=== PATIENT | female | born 1950 | race Caucasian/White ===

== ENCOUNTER 2017-04-19 08:19 | Emergency (ER) | payer BC, MEDICAID ==
[~2017-04-19] VITALS: Ht 162.6 cm; Wt 75.0 kg
[2017-04-19] MEDS ORDERED: ACETAMINOPHEN 325MG TABLET PO ONE (09:30)
[2017-04-19 11:18] VITALS: BP 131/79
== END 2017-04-19 11:29 | disposition home or self-care (01) ==
LOC: ER 08:42
DX: M25.562 Pain in left knee (principal); M25.462 Effusion, left knee; M76.42 Tibial collateral bursitis [Pellegrini-Stieda], left leg
CPT/HCPCS: 29505; 73562; 99284

== ENCOUNTER 2019-08-25 19:31 | Inpatient (IN) | payer BC, MEDICAID, MEDICARE, OTHER ==
[~2019-08-25] VITALS: Ht 170.2 cm; Wt 83.5 kg
[~2019-08-25 19:31] MED LIST: ALPR-395 PO; ASPI-1393 PO; GLUC-230 PO; MAGN250T29 PO; MULT-1195 PO; [UNRECOGNIZED DRUG - OTHER]; [UNRECOGNIZED DRUG - OTHER]
[2019-08-25 20:07] LABS: HEMATOCRIT. 45.9 % (36.0-48.0); HEMOGLOBIN. 15.2 g/dL (12.0-16.0); MEAN CORPUSCULAR HEMOGLOBIN 30.2 pg (28.0-32.0); MEAN CORPUSCULAR VOLUME 91.4 fL (81.0-99.0); RED BLOOD CELL COUNT 5.02 mill/uL (4.2-5.4); RED CELL DISTRIBUTION WIDTH 14.4 % (11.6-14.6)
[2019-08-25 20:08] LABS: BASOPHILS % 0.5 % (0.0-2.0); EOSINOPHILS % 1.7 % (0.0-5.0); LYMPHOCYTES % 15.9 % (20.0-50.0); MEAN PLATELET VOLUME 9.3 fl (7.4-10.4); MONOCYTES % 7.8 % (2.0-8.0); NEUTROPHILS % 74.1 % (40.0-76.0); PLATELET 183 x1000/uL (130-400)
[2019-08-25 20:15] LABS: CHLORIDE 107 mEq/L (98-107)
[2019-08-25 20:19] LABS: ETHANOL BLOOD < 10 mg/dL
[2019-08-25 20:25] LABS: PROTHROMBIN TIME 10.5 sec (9.6-11.0)
[2019-08-25 23:33] LABS: CLARITY URINE TURBID (CLEAR); COLOR URINE DARK YELLOW (YELLOW); KETONES URINE TRACE (NEGATIVE); LEUKOCYTE ESTERASE URINE NEGATIVE (NEGATIVE); NITRITE URINE NEGATIVE (NEGATIVE); OCCULT BLOOD URINE NEGATIVE (NEGATIVE); PH URINE 5.5 (4.5-8.0); PROTEIN URINE 1+ (NEGATIVE); SPECIFIC GRAVITY URINE 1.026 (1.005-1.030)
[2019-08-25 23:56] LABS: *AMPHETAMINES SCREEN URINE NEGATIVE (NEGATIVE); *BARBITURATES SCREEN URINE NEGATIVE (NEGATIVE)
[2019-08-25 23:57] LABS: *BENZODIAZEPINES SCREEN URINE NEGATIVE (NEGATIVE); *COCAINE SCREEN URINE NEGATIVE (NEGATIVE); METHADONE URINE SCREEN NEGATIVE (NEGATIVE); OPIATES URINE SCREEN NEGATIVE (NEGATIVE); PHENCYCLIDINE URINE SCREEN NEGATIVE (NEGATIVE)
[2019-08-25 23:58] LABS: CANNABINOID URINE SCREEN NEGATIVE (NEGATIVE)
[2019-08-26 02:00] VITALS: BP 111/69
[2019-08-26 03:22] VITALS: BP 111/69
[2019-08-26] MEDS ORDERED: IOHEXOL-350 100 ML BOTTLE ONE (03:35)
[2019-08-26] MEDS ORDERED: IPRATROPIUM/ALBUTEROL 0.5-3(2.5)MG/3ML NEB HHN PRN (07:45)
[2019-08-26 08:00] VITALS: BP 120/73
[2019-08-26] MEDS: SODIUM CHLORIDE 0.9% 1,000 ML IV SCH (11:23)
[2019-08-26 12:00] VITALS: BP 115/64
[2019-08-26] MEDS: SODIUM CHLORIDE 0.9% INJ 3ML FLUSH IVF SCH ×2 (14:49→21:35)
[2019-08-26 16:00] VITALS: BP 132/62
[2019-08-26 20:00] VITALS: BP 117/69
[2019-08-26] MEDS: LEVETIRACETAM 500 MG in SODIUM CHLORIDE 0.9% 100 ML IV SCH (21:36)
[2019-08-27] VITALS: BP 129/65
[2019-08-27] MEDS: SODIUM CHLORIDE 0.9% 1,000 ML IV SCH ×2 (01:21→18:59)
[2019-08-27 04:00] VITALS: BP 135/72
[2019-08-27] MEDS: SODIUM CHLORIDE 0.9% INJ 3ML FLUSH IVF SCH ×3 (06:00→22:34)
[2019-08-27 07:55] LABS: BASOPHILS % 0.8 % (0.0-2.0); HEMATOCRIT. 39.5 % (36.0-48.0); HEMOGLOBIN. 12.9 g/dL (12.0-16.0); LYMPHOCYTES % 33.8 % (20.0-50.0); MEAN CORPUSCULAR VOLUME 91.6 fL (81.0-99.0); MEAN PLATELET VOLUME 10.3 fl (7.4-10.4); NEUTROPHILS % 54.4 % (40.0-76.0); PLATELET 167 x1000/uL (130-400); RED BLOOD CELL COUNT 4.31 mill/uL (4.2-5.4); RED CELL DISTRIBUTION WIDTH 14.6 % (11.6-14.6)
[2019-08-27 07:56] LABS: CHLORIDE 113 mEq/L (98-107)
[2019-08-27 08:00] VITALS: BP 136/73
[2019-08-27 08:04] LABS: LDL CHOLESTEROL 157 mg/dL (5-100)
[2019-08-27 08:05] LABS: HDL CHOLESTEROL 31 mg/dL (40-59)
[2019-08-27] MEDS: LEVETIRACETAM 500 MG in SODIUM CHLORIDE 0.9% 100 ML IV SCH ×2 (08:32→22:34)
[2019-08-27 13:00] VITALS: BP 121/88
[2019-08-27] MEDS ORDERED: DIPHENHYDRAMINE 25MG CAPSULE PO PRN (14:15)
[2019-08-27] MEDS ORDERED: ACETAMINOPHEN 325MG TABLET PO PRN (14:15)
[2019-08-27] MEDS ORDERED: HYDROCODONE/ACETAMINOPHEN 5/325MG TABLET PO PRN (14:15)
[2019-08-27] MEDS ORDERED: ACETAMINOPHEN 650MG SUPP PR PRN (14:15)
[2019-08-27 16:00] VITALS: BP 151/83
[2019-08-27] MEDS ORDERED: GADOBENATE DIMEGLUMINE 529 MG/ML 10ML IV ONE (16:36)
[2019-08-27] MEDS: CHOLESTYRAMINE/SUCROSE 4G POWDER PACKET PO SCH (17:15)
[2019-08-27 20:00] VITALS: BP 129/72
[2019-08-27] MEDS ORDERED: LACTULOSE 20G/30ML UDC PO PRN (21:00)
[2019-08-28] VITALS: BP 119/56
[2019-08-28 04:00] VITALS: BP 127/64
[2019-08-28] MEDS: CHOLESTYRAMINE/SUCROSE 4G POWDER PACKET PO SCH ×2 (07:15→17:15)
[2019-08-28 08:00] VITALS: BP 131/79
[2019-08-28] MEDS: LEVETIRACETAM 500 MG in SODIUM CHLORIDE 0.9% 100 ML IV SCH (09:00)
[2019-08-28 10:40] LABS: HEMATOCRIT 38.2 % (36.0-48.0); HEMOGLOBIN 12.6 g/dL (12.0-16.0); MEAN CORPUSCULAR HEMOGLOBIN 29.9 pg (28.0-32.0); MEAN CORPUSCULAR VOLUME 91.2 fL (81.0-99.0); PLATELET 169 x1000/uL (130-400); RED CELL DISTRIBUTION WIDTH 14.4 % (11.6-14.6)
[2019-08-28 10:43] LABS: CHLORIDE 112 mEq/L (98-107)
[2019-08-28 12:00] VITALS: BP 149/73
[2019-08-28 12:03] LABS: HEPATITIS B SURFACE ANTIGEN NEGATIVE
[2019-08-28 12:33] LABS: HEPATITIS A AB IGM NEGATIVE (NEGATIVE)
[2019-08-28 12:51] LABS: BG BASE EXCESS -0.7 mmol/L (-2.0-2.0); BG CARBOXYHEMOGLOBIN 0.4 % (0.5-1.5); BG DEOXYHEMOGLOBIN 4.9 % (0.0-5.0); BG FRACTION INSPIRED OXYGEN 21; BG HCO3 ACT 23.5 mmol/L (22.0-26.0); BG METHEMOGLOBIN 0.1 % (0.0-1.5); BG OXYGEN SATURATION 95.1 % (92.0-98.5); BG OXYHEMOGLOBIN 94.6 % (94.0-97.0); BG PCO2 37.2 mmHg (35.0-45.0); BG PH 7.418 (7.350-7.450); BG PO2 75.9 mmHg (75.0-100.0); BG SAMPLE SITE RIGHT BRACHIAL; BG TOTAL HEMOGLOBIN 13.2 g/dL (12.0-18.0); BG VENT MODE ROOM AIR
[2019-08-28] MEDS: SODIUM CHLORIDE 0.9% 1,000 ML IV SCH (13:52)
[2019-08-28] MEDS: SODIUM CHLORIDE 0.9% INJ 3ML FLUSH IVF SCH ×3 (13:52→21:09)
[2019-08-28] MEDS ORDERED: POTASSIUM CHLORIDE INJ 40 MEQ in DEXT 5% WATER 250 ML IV NR (14:00)
[2019-08-28 16:00] VITALS: BP 161/91
[2019-08-28] MEDS: FAMOTIDINE 20MG/2ML VIAL IV SCH (19:44)
[2019-08-28 20:00] VITALS: BP 165/94
[2019-08-28] MEDS: ENOXAPARIN 40MG/0.4ML SYR SUBCUT SCH (21:08)
[2019-08-28] MEDS: DEXT 5%/0.45% NACL KCL 20MEQ/L 1,000 ML IV SCH (21:08)
[2019-08-28] MEDS: CIPROFLOXACIN 0.3% OPHTH SOLN 2.5ML RIGHTEYE SCH (21:09)
[2019-08-28] MEDS: LEVETIRACETAM 500MG PREMIX 100 ML IV SCH (21:09)
[2019-08-29] VITALS: BP 169/91
[2019-08-29 04:00] VITALS: BP 195/80
[2019-08-29] MEDS: SODIUM CHLORIDE 0.9% INJ 3ML FLUSH IVF SCH ×3 (06:00→22:00)
[2019-08-29] MEDS: CHOLESTYRAMINE/SUCROSE 4G POWDER PACKET PO SCH ×2 (06:15→17:15)
[2019-08-29 07:11] LABS: HEMATOCRIT 42.2 % (36.0-48.0); HEMOGLOBIN 14.2 g/dL (12.0-16.0); MEAN CORPUSCULAR HEMOGLOBIN 30.4 pg (28.0-32.0); MEAN CORPUSCULAR VOLUME 90.4 fL (81.0-99.0); PLATELET 159 x1000/uL (130-400); RED BLOOD CELL COUNT 4.67 mill/uL (4.2-5.4); RED CELL DISTRIBUTION WIDTH 14.1 % (11.6-14.6)
[2019-08-29 07:12] LABS: CHLORIDE 112 mEq/L (98-107)
[2019-08-29 07:39] LABS: PROTHROMBIN TIME 10.4 sec (9.6-11.0)
[2019-08-29 08:00] VITALS: BP 145/76
[2019-08-29] MEDS: LEVETIRACETAM 500MG PREMIX 100 ML IV SCH ×2 (09:29→20:58)
[2019-08-29] MEDS: FAMOTIDINE 20MG/2ML VIAL IV SCH (09:29)
[2019-08-29] MEDS: CIPROFLOXACIN 0.3% OPHTH SOLN 2.5ML RIGHTEYE SCH ×4 (09:29→20:58)
[2019-08-29 12:00] VITALS: BP 121/69
[2019-08-29] MEDS: DEXT 5%/0.45% NACL KCL 20MEQ/L 1,000 ML IV SCH (13:20)
[2019-08-29 16:00] VITALS: BP 142/77
[2019-08-29 20:00] VITALS: BP 156/79
[2019-08-29] MEDS: ENOXAPARIN 40MG/0.4ML SYR SUBCUT SCH (20:58)
[2019-08-30] VITALS: BP_SYST 139; BP_SYST 156; BP_DIAS 58; BP_DIAS 79
[2019-08-30 04:00] VITALS: BP 171/70
[2019-08-30] MEDS: SODIUM CHLORIDE 0.9% INJ 3ML FLUSH IVF SCH ×3 (06:31→22:06)
[2019-08-30] MEDS: DEXT 5%/0.45% NACL KCL 20MEQ/L 1,000 ML IV SCH ×2 (06:31→22:06)
[2019-08-30] MEDS: CHOLESTYRAMINE/SUCROSE 4G POWDER PACKET PO SCH ×2 (06:33→17:15)
[2019-08-30] MEDS: CIPROFLOXACIN 0.3% OPHTH SOLN 2.5ML RIGHTEYE SCH ×4 (09:53→22:04)
[2019-08-30] MEDS: LEVETIRACETAM 500MG PREMIX 100 ML IV SCH ×2 (09:54→22:06)
[2019-08-30] MEDS: FAMOTIDINE 20MG/2ML VIAL IV SCH (09:54)
[2019-08-30 20:00] VITALS: BP 151/82
[2019-08-30] MEDS: ENOXAPARIN 40MG/0.4ML SYR SUBCUT SCH (22:05)
[2019-08-31] VITALS: BP 132/77
[2019-08-31] MEDS: MORPHINE SULFATE 2 MG/ML CPJ (NOT FOR IM USE) IV PRN ×3 (00:20→15:06)
[2019-08-31 04:00] VITALS: BP 121/71
[2019-08-31] MEDS: SODIUM CHLORIDE 0.9% INJ 3ML FLUSH IVF SCH ×3 (05:51→22:00)
[2019-08-31] MEDS: CHOLESTYRAMINE/SUCROSE 4G POWDER PACKET PO SCH ×2 (05:52→16:48)
[2019-08-31 08:00] VITALS: BP 147/83
[2019-08-31] MEDS: FAMOTIDINE 20MG/2ML VIAL IV SCH (08:22)
[2019-08-31] MEDS: CIPROFLOXACIN 0.3% OPHTH SOLN 2.5ML RIGHTEYE SCH ×5 (08:23→20:16)
[2019-08-31] MEDS: LEVETIRACETAM 500MG PREMIX 100 ML IV SCH ×3 (08:23→20:35)
[2019-08-31 12:00] VITALS: BP 157/70
[2019-08-31] MEDS: DEXT 5%/0.45% NACL KCL 20MEQ/L 1,000 ML IV SCH (15:07)
[2019-08-31 16:00] VITALS: BP 125/69
[2019-08-31 20:00] VITALS: BP 133/67
[2019-08-31] MEDS: ENOXAPARIN 40MG/0.4ML SYR SUBCUT SCH (20:16)
[2019-09-01] VITALS: BP 131/47
[2019-09-01 04:00] VITALS: BP 106/82
[2019-09-01] MEDS: SODIUM CHLORIDE 0.9% INJ 3ML FLUSH IVF SCH ×3 (05:07→21:21)
[2019-09-01] MEDS: CHOLESTYRAMINE/SUCROSE 4G POWDER PACKET PO SCH ×2 (06:22→17:15)
[2019-09-01 08:00] VITALS: BP 155/74
[2019-09-01] MEDS: LEVETIRACETAM 500MG PREMIX 100 ML IV SCH ×2 (10:00→20:03)
[2019-09-01] MEDS: CIPROFLOXACIN 0.3% OPHTH SOLN 2.5ML RIGHTEYE SCH ×4 (10:00→20:03)
[2019-09-01] MEDS: DEXT 5%/0.45% NACL KCL 20MEQ/L 1,000 ML IV SCH (10:07)
[2019-09-01] MEDS: FAMOTIDINE 20MG/2ML VIAL IV SCH (10:51)
[2019-09-01 12:03] VITALS: BP 147/72
[2019-09-01 16:03] VITALS: BP 150/74
[2019-09-01 20:00] VITALS: BP 140/60
[2019-09-01] MEDS: ENOXAPARIN 40MG/0.4ML SYR SUBCUT SCH (20:03)
[2019-09-02] VITALS: BP 159/94
[2019-09-02] MEDS: DEXT 5%/0.45% NACL KCL 20MEQ/L 1,000 ML IV SCH ×2 (00:05→17:07)
[2019-09-02 04:00] VITALS: BP 133/79
[2019-09-02] MEDS: SODIUM CHLORIDE 0.9% INJ 3ML FLUSH IVF SCH ×3 (05:33→21:34)
[2019-09-02] MEDS: CHOLESTYRAMINE/SUCROSE 4G POWDER PACKET PO SCH ×2 (06:26→17:07)
[2019-09-02 08:00] VITALS: BP_SYST 151; BP_SYST 157; BP_DIAS 84; BP_DIAS 97
[2019-09-02] MEDS: CIPROFLOXACIN 0.3% OPHTH SOLN 2.5ML RIGHTEYE SCH ×4 (08:25→21:41)
[2019-09-02] MEDS: FAMOTIDINE 20MG/2ML VIAL IV SCH (08:25)
[2019-09-02] MEDS: LEVETIRACETAM 500MG PREMIX 100 ML IV SCH ×2 (09:36→21:00)
[2019-09-02 12:00] VITALS: BP 152/89
[2019-09-02 16:00] VITALS: BP 150/94
[2019-09-02] MEDS: ENOXAPARIN 40MG/0.4ML SYR SUBCUT SCH (21:42)
[2019-09-02 21:44] VITALS: BP 144/82
[2019-09-03] VITALS (7 sets, daily range): BP systolic 111–153; BP diastolic 66–86
[2019-09-03] MEDS: SODIUM CHLORIDE 0.9% INJ 3ML FLUSH IVF SCH ×2 (06:00→14:00)
[2019-09-03] MEDS: CHOLESTYRAMINE/SUCROSE 4G POWDER PACKET PO SCH ×2 (07:15→17:15)
[2019-09-03] MEDS: LEVETIRACETAM 500MG PREMIX 100 ML IV SCH (08:26)
[2019-09-03] MEDS: FAMOTIDINE 20MG/2ML VIAL IV SCH (08:26)
[2019-09-03] MEDS: CIPROFLOXACIN 0.3% OPHTH SOLN 2.5ML RIGHTEYE SCH ×3 (08:54→17:00)
[2019-09-03] MEDS: DEXT 5%/0.45% NACL KCL 20MEQ/L 1,000 ML IV SCH (08:54)
[2019-09-03] MEDS ORDERED: LEVETIRACETAM 500 MG in SODIUM CHLORIDE 0.9% 100 ML IV SCH (10:00)
== END 2019-09-03 21:52 | disposition home or self-care (01) | DRG 74 ==
LOC: ER 20:42 → 6EST 23:42 → EDBEDREQ 23:55 → EDBEDREQTM 23:55 → EDBEDREQSVC 23:55 → ENRESERV 08-26 00:20 → 5WST 08-26 18:40
PROVIDERS: ADMIT Internal Medicine; ATTEND Internal Medicine
DX: G90.8 Other disorders of autonomic nervous system (principal); E87.2 Acidosis; G93.40 Encephalopathy, unspecified; D32.0 Benign neoplasm of cerebral meninges; I65.21 Occlusion and stenosis of right carotid artery; G93.89 Other specified disorders of brain; I25.10 Atherosclerotic heart disease of native coronary artery without angina pectoris; E78.5 Hyperlipidemia, unspecified; E87.6 Hypokalemia; I10 Essential (primary) hypertension; R13.10 Dysphagia, unspecified; E66.9 Obesity, unspecified; K21.9 Gastro-esophageal reflux disease without esophagitis; E11.9 Type 2 diabetes mellitus without complications; K76.0 Fatty (change of) liver, not elsewhere classified; Z74.01 Bed confinement status; Z82.49 Family history of ischemic heart disease and other diseases of the circulatory system; Z90.49 Acquired absence of other specified parts of digestive tract; Z68.28 Body mass index [BMI] 28.0-28.9, adult; Z79.899 Other long term (current) drug therapy; Z86.73 Personal history of transient ischemic attack (TIA), and cerebral infarction without residual deficits
CPT/HCPCS: 36415; 36600; 70496; 70553; 71045; 76700; 80048; 80053; 80061; 80076; 80305; 80320; 81003; 82140; 82375; 82805; 82962; 83605; 83721; 83735; 84484; 85025; 85027; 86705; 86709; 86803; 87340; 92610; 93005; 97162; 97530; 99291; A6261; A9577; J1650; J1953; J2270; J3480; J3490; J7030; J7050; J7060; Q9967; G0480

== ENCOUNTER 2020-08-18 20:23 | Inpatient (IN) | payer MEDICAID, MEDICARE, OTHER ==
[~2020-08-18] VITALS: Ht 167.6 cm; Wt 89.5 kg
[~2020-08-18 20:23] MED LIST changes: -ASPI-1393 PO; +ASPI-1497 PO
[2020-08-18] MEDS ORDERED: ALBUTEROL (0.083%) 2.5MG/3ML NEB HHN STA (23:01)
[2020-08-18] MEDS ORDERED: IPRATROPIUM BROMIDE (0.02%) 0.5MG/2.5ML NEB HHN STA (23:01)
[2020-08-18 23:56] LABS: BASOPHILS % 0.8 % (0.0-2.0); EOSINOPHILS % 2.1 % (0.0-5.0); HEMATOCRIT. 40.8 % (36.0-48.0); HEMOGLOBIN. 13.7 g/dL (12.0-16.0); LYMPHOCYTES % 23.5 % (20.0-50.0); MEAN CORPUSCULAR HEMOGLOBIN 30.1 pg (28.0-32.0); MEAN CORPUSCULAR VOLUME 89.7 fL (81.0-99.0); MEAN PLATELET VOLUME 9.2 fl (7.4-10.4); MONOCYTES % 8.7 % (2.0-8.0); NEUTROPHILS % 64.9 % (40.0-76.0); PLATELET 200 x1000/uL (130-400); RED BLOOD CELL COUNT 4.54 mill/uL (4.2-5.4); RED CELL DISTRIBUTION WIDTH 14.6 % (11.6-14.6)
[2020-08-19 00:15] LABS: CHLORIDE 108 mEq/L (98-107)
[2020-08-19 15:30] VITALS: BP 136/83
[2020-08-19] MEDS ORDERED: ONDANSETRON HCL 4MG/2ML INJ IV PRN (16:30)
[2020-08-19] MEDS ORDERED: GUAIFENESIN 200MG/10ML SUGAR FREE UDC PO PRN (16:30)
[2020-08-19] MEDS ORDERED: IPRATROPIUM/ALBUTEROL 0.5-3(2.5)MG/3ML NEB NEB PRN (16:30)
[2020-08-19] MEDS ORDERED: DIPHENHYDRAMINE 50MG/ML VIAL IV PRN (16:30)
[2020-08-19] MEDS ORDERED: CLONIDINE 0.1MG TABLET PO PRN (16:30)
[2020-08-19] MEDS ORDERED: ACETAMINOPHEN 650MG SUPP PR PRN (16:30)
[2020-08-19] MEDS ORDERED: NA PHOS,M-B/NA PHOS,DI-BA ENEMA 118ML PR PRN (16:30)
[2020-08-19] MEDS ORDERED: MAGNESIUM/ALUMINUM HYDROXIDE/SIMETHICONE 30ML UDC PO PRN (16:30)
[2020-08-19] MEDS ORDERED: CEFTRIAXONE 1 G PREMIX 50 ML IV SCH (16:30)
[2020-08-19] MEDS ORDERED: LORAZEPAM 0.5MG TABLET PO PRN (16:30)
[2020-08-19] MEDS ORDERED: DOCUSATE SODIUM 100MG CAPSULE PO PRN (16:30)
[2020-08-19] MEDS: ALBUTEROL 6.7GM HFA INHALER ORI SCH (18:00)
[2020-08-19] MEDS: ENOXAPARIN 40MG/0.4ML SYR SUBCUT SCH (18:26)
[2020-08-19 18:42] LABS: BASOPHILS % 1.1 % (0.0-2.0); EOSINOPHILS % 2.4 % (0.0-5.0); HEMATOCRIT. 40.3 % (36.0-48.0); HEMOGLOBIN. 13.4 g/dL (12.0-16.0); LYMPHOCYTES % 32.5 % (20.0-50.0); MEAN CORPUSCULAR VOLUME 90.4 fL (81.0-99.0); MEAN PLATELET VOLUME 9.5 fl (7.4-10.4); PLATELET 173 x1000/uL (130-400); RED BLOOD CELL COUNT 4.46 mill/uL (4.2-5.4); RED CELL DISTRIBUTION WIDTH 14.6 % (11.6-14.6)
[2020-08-19 18:49] LABS: CHLORIDE 107 mEq/L (98-107)
[2020-08-19 18:51] LABS: D-DIMER 0.29 mg/L FEU (<0.50); PROTHROMBIN TIME 10.7 sec (9.6-11.0)
[2020-08-19 20:00] VITALS: BP 97/65
[2020-08-19] MEDS: CEFTRIAXONE 1,000 MG in DEXTROSE 5% WATER 50 ML IV SCH (21:25)
[2020-08-19] MEDS: AZITHROMYCIN 500 MG in DEXT 5% WATER 250 ML IV SCH (21:25)
[2020-08-19] MEDS: FAMOTIDINE 20MG TABLET PO SCH (21:26)
[2020-08-19] MEDS: HYDROCODONE/ACETAMINOPHEN 5/325MG TABLET PO PRN (21:28)
[2020-08-20] VITALS: BP 117/55
[2020-08-20 01:45] LABS: CREATINE KINASE 48 IU/L (26-192)
[2020-08-20 01:46] LABS: CREATINE KINASE MB FRACTION < 1.0 ng/mL (0.5-3.6)
[2020-08-20 04:00] VITALS: BP 120/51
[2020-08-20] MEDS: HYDROCODONE/ACETAMINOPHEN 5/325MG TABLET PO PRN (04:35)
[2020-08-20] MEDS: ALBUTEROL 6.7GM HFA INHALER ORI SCH ×4 (05:14→17:30)
[2020-08-20 07:15] LABS: CHLORIDE 106 mEq/L (98-107)
[2020-08-20 07:27] LABS: LDL CHOLESTEROL 190 mg/dL (5-100)
[2020-08-20 07:28] LABS: CREATINE KINASE 46 IU/L (26-192); CREATINE KINASE MB FRACTION < 1.0 ng/mL (0.5-3.6); HDL CHOLESTEROL 34 mg/dL (40-59); T4 FREE 1.07 ng/dL (0.76-1.46)
[2020-08-20 07:32] LABS: BASOPHILS % 0.9 % (0.0-2.0); EOSINOPHILS % 2.9 % (0.0-5.0); HEMATOCRIT. 37.7 % (36.0-48.0); HEMOGLOBIN. 13.1 g/dL (12.0-16.0); LYMPHOCYTES % 28.8 % (20.0-50.0); MEAN CORPUSCULAR HEMOGLOBIN 31.3 pg (28.0-32.0); MEAN CORPUSCULAR VOLUME 90.5 fL (81.0-99.0); MEAN PLATELET VOLUME 9.4 fl (7.4-10.4); MONOCYTES % 8.1 % (2.0-8.0); NEUTROPHILS % 59.3 % (40.0-76.0); PLATELET 191 x1000/uL (130-400); RED BLOOD CELL COUNT 4.17 mill/uL (4.2-5.4); RED CELL DISTRIBUTION WIDTH 14.4 % (11.6-14.6)
[2020-08-20 08:00] VITALS: BP 143/67
[2020-08-20] MEDS: ENOXAPARIN 40MG/0.4ML SYR SUBCUT SCH (08:31)
[2020-08-20 12:00] VITALS: BP 128/71
[2020-08-20 16:00] VITALS: BP 102/58
[2020-08-20] MEDS: CEFTRIAXONE 1,000 MG in DEXTROSE 5% WATER 50 ML IV SCH (17:13)
[2020-08-20] MEDS: AZITHROMYCIN 500 MG in DEXT 5% WATER 250 ML IV SCH (17:13)
[2020-08-20] MEDS: FAMOTIDINE 20MG TABLET PO SCH (22:08)
[2020-08-21] VITALS: BP 136/101
[2020-08-21] MEDS ORDERED: ALBUTEROL (0.083%) 2.5MG/3ML NEB INH SCH
[2020-08-21 06:53] LABS: HEMOGLOBIN 12.5 g/dL (12.0-16.0); MEAN CORPUSCULAR HEMOGLOBIN 30.4 pg (28.0-32.0); MEAN CORPUSCULAR VOLUME 89.8 fL (81.0-99.0); PLATELET 194 x1000/uL (130-400); RED BLOOD CELL COUNT 4.12 mill/uL (4.2-5.4); RED CELL DISTRIBUTION WIDTH 14.4 % (11.6-14.6)
[2020-08-21 07:10] LABS: CHLORIDE 107 mEq/L (98-107)
[2020-08-21 08:00] VITALS: BP 141/89
[2020-08-21] MEDS: ACETAMINOPHEN 650MG/20.3ML UDC GT PRN ×2 (09:11→16:16)
[2020-08-21] MEDS: ENOXAPARIN 40MG/0.4ML SYR SUBCUT SCH (09:11)
[2020-08-21 12:00] VITALS: BP 143/109
[2020-08-21] MEDS ORDERED: ALBU90AE INH (15:50)
[2020-08-21] MEDS ORDERED: LEVO500T2 PO (15:50)
[2020-08-21 16:00] VITALS: BP 126/78
[2020-08-21 17:47] VITALS: BP 114/78
[2020-08-22] MEDS ORDERED: AZITHROMYCIN 500 MG TABLET PO SCH (17:00)
== END 2020-08-21 18:30 | disposition home or self-care (01) | DRG 202 ==
LOC: ER 20:23 → 6WST 08-19 02:50 → ENRESERV 08-19 14:55 → 7EST 08-19 18:55 → 5EST 08-20 22:45
PROVIDERS: ADMIT Internal Medicine; ATTEND Internal Medicine
DX: J40 Bronchitis, not specified as acute or chronic (principal); J69.0 Pneumonitis due to inhalation of food and vomit; E78.5 Hyperlipidemia, unspecified; E86.0 Dehydration; Z20.828 Contact with and (suspected) exposure to other viral communicable diseases; K21.9 Gastro-esophageal reflux disease without esophagitis; R73.9 Hyperglycemia, unspecified; R74.01 Elevation of levels of liver transaminase levels; Z82.49 Family history of ischemic heart disease and other diseases of the circulatory system; Z86.011 Personal history of benign neoplasm of the brain; I69.391 Dysphagia following cerebral infarction; Z79.899 Other long term (current) drug therapy; R06.03 Acute respiratory distress
CPT/HCPCS: 36415; 71045; 74018; 76700; 80053; 80061; 82550; 82553; 82728; 83615; 83880; 84145; 84439; 84443; 84484; 85025; 85027; 85379; 86850; 86900; 87070; 87635; 87804; 92610; 93005; 94644; 96372; 99285; C1893; J0456; J0696; J1200; J1650; J7060

== ENCOUNTER 2020-11-28 11:39 | Inpatient (IN) | payer MEDICARE, OTHER ==
[~2020-11-28] VITALS: Ht 165.1 cm; Wt 88.0 kg
[~2020-11-28 11:39] MED LIST changes: +ALBU90AE INH; +LEVO500T2 PO
[2020-11-28 13:01] LABS: BASOPHILS % 0.8 % (0.0-2.0); EOSINOPHILS % 2.4 % (0.0-5.0); HEMATOCRIT. 41.5 % (36.0-48.0); HEMOGLOBIN. 13.7 g/dL (12.0-16.0); LYMPHOCYTES % 24.6 % (20.0-50.0); MEAN CORPUSCULAR HEMOGLOBIN 29.7 pg (28.0-32.0); MEAN CORPUSCULAR VOLUME 90.4 fL (81.0-99.0); MEAN PLATELET VOLUME 9.3 fl (7.4-10.4); MONOCYTES % 6.8 % (2.0-8.0); NEUTROPHILS % 65.4 % (40.0-76.0); PLATELET 216 x1000/uL (130-400); RED CELL DISTRIBUTION WIDTH 14.6 % (11.6-14.6)
[2020-11-28 13:05] LABS: CHLORIDE 108 mEq/L (98-107)
[2020-11-28 13:09] LABS: D-DIMER 0.36 mg/L FEU (<0.50); ETHANOL BLOOD < 10 mg/dL; PROTHROMBIN TIME 10.7 sec (9.6-11.0)
[2020-11-28 13:13] LABS: CREATINE KINASE 97 IU/L (26-192)
[2020-11-28 16:47] LABS: CLARITY URINE CLEAR (CLEAR); COLOR URINE YELLOW (YELLOW); KETONES URINE TRACE (NEGATIVE); LEUKOCYTE ESTERASE URINE TRACE (NEGATIVE); NITRITE URINE NEGATIVE (NEGATIVE); OCCULT BLOOD URINE 2+ (NEGATIVE); PROTEIN URINE TRACE (NEGATIVE); SPECIFIC GRAVITY URINE 1.027 (1.005-1.030)
[2020-11-28 17:02] LABS: *AMPHETAMINES SCREEN URINE NEGATIVE (NEGATIVE); *BARBITURATES SCREEN URINE NEGATIVE (NEGATIVE); *COCAINE SCREEN URINE NEGATIVE (NEGATIVE); CANNABINOID URINE SCREEN NEGATIVE (NEGATIVE); METHADONE URINE SCREEN NEGATIVE (NEGATIVE); OPIATES URINE SCREEN NEGATIVE (NEGATIVE); PHENCYCLIDINE URINE SCREEN NEGATIVE (NEGATIVE)
[2020-11-28 17:03] LABS: *BENZODIAZEPINES SCREEN URINE NEGATIVE (NEGATIVE)
[2020-11-29 02:30] VITALS: BP 187/109
[2020-11-29] MEDS ORDERED: DEXT 5%/0.9% NACL KCL 20MEQ/L 1,000 ML IV SCH (06:30)
[2020-11-29 08:00] VITALS: BP 154/57
[2020-11-29] MEDS: DEXT 5%/0.45% NACL KCL 20MEQ/L 1,000 ML IV SCH ×2 (08:10→17:06)
[2020-11-29] MEDS ORDERED: FAMOTIDINE 20MG TABLET PO SCH (09:00)
[2020-11-29] MEDS ORDERED: HYDRALAZINE 20MG/ML VIAL IV PRN (09:15)
[2020-11-29] MEDS: HEPARIN 5000 UNITS/ML VIAL SUBCUT SCH ×2 (09:17→20:45)
[2020-11-29] MEDS: FAMOTIDINE 20MG/2ML VIAL IV SCH (09:17)
[2020-11-29] MEDS: METOPROLOL TARTRATE 50MG TABLET PO SCH ×2 (09:18→20:44)
[2020-11-29 10:56] LABS: BASOPHILS % 0.6 % (0.0-2.0); EOSINOPHILS % 0.7 % (0.0-5.0); LYMPHOCYTES % 15.5 % (20.0-50.0); MEAN CORPUSCULAR HEMOGLOBIN 29.9 pg (28.0-32.0); MEAN CORPUSCULAR VOLUME 89.9 fL (81.0-99.0); MEAN PLATELET VOLUME 9.1 fl (7.4-10.4); MONOCYTES % 6.9 % (2.0-8.0); NEUTROPHILS % 76.3 % (40.0-76.0); PLATELET 220 x1000/uL (130-400); RED BLOOD CELL COUNT 4.34 mill/uL (4.2-5.4); RED CELL DISTRIBUTION WIDTH 14.3 % (11.6-14.6)
[2020-11-29] MEDS ORDERED: LIDOCAINE HCL/PF 1% 2ML VIAL ONE (11:00)
[2020-11-29 11:01] LABS: CHLORIDE 107 mEq/L (98-107)
[2020-11-29] MEDS: PIPERACILLIN/TAZOBACTAM 3.375 G in DEXT 5% WATER 100 ML IV SCH ×3 (11:02→23:51)
[2020-11-29 12:14] VITALS: BP 123/56
[2020-11-29] MEDS ORDERED: LORAZEPAM 2MG/ML CPJ IV PRN (12:15)
[2020-11-29] MEDS ORDERED: ACETAMINOPHEN 325MG TABLET PO PRN (12:15)
[2020-11-29] MEDS ORDERED: BISACODYL 10MG SUPP PR PRN (12:15)
[2020-11-29] MEDS ORDERED: ACETAMINOPHEN 650MG SUPP PR PRN (12:15)
[2020-11-29] MEDS: ASPIRIN 81MG TABLET PO SCH (12:35)
[2020-11-29 12:51] LABS: BG BASE EXCESS 2.7 mmol/L (-2.0-2.0); BG CARBOXYHEMOGLOBIN 0.6 % (0.5-1.5); BG DEOXYHEMOGLOBIN 3.7 % (0.0-5.0); BG FRACTION INSPIRED OXYGEN 21; BG HCO3 ACT 26.9 mmol/L (22.0-26.0); BG METHEMOGLOBIN 0.2 % (0.0-1.5); BG OXYGEN SATURATION 96.3 % (92.0-98.5); BG OXYHEMOGLOBIN 95.5 % (94.0-97.0); BG PH 7.446 (7.350-7.450); BG PO2 78.8 mmHg (75.0-100.0); BG SAMPLE SITE RIGHT RADIAL; BG TOTAL HEMOGLOBIN 13.4 g/dL (12.0-18.0); BG VENT MODE ROOM AIR
[2020-11-29 16:00] VITALS: BP 159/88
[2020-11-29 20:21] VITALS: BP 125/69
[2020-11-29] MEDS: IPRATROPIUM/ALBUTEROL 0.5-3(2.5)MG/3ML NEB HHN SCH (21:48)
[2020-11-30] VITALS: BP 102/63
[2020-11-30] MEDS: DEXT 5%/0.45% NACL KCL 20MEQ/L 1,000 ML IV SCH ×2 (03:19→13:45)
[2020-11-30] MEDS: IPRATROPIUM/ALBUTEROL 0.5-3(2.5)MG/3ML NEB HHN SCH ×4 (03:55→20:39)
[2020-11-30 05:43] VITALS: BP 120/50
[2020-11-30] MEDS: PIPERACILLIN/TAZOBACTAM 3.375 G in DEXT 5% WATER 100 ML IV SCH ×3 (06:44→16:20)
[2020-11-30 07:49] VITALS: BP 123/51
[2020-11-30] MEDS: FAMOTIDINE 20MG/2ML VIAL IV SCH (09:19)
[2020-11-30] MEDS: ASPIRIN 81MG TABLET PO SCH (09:19)
[2020-11-30] MEDS: METOPROLOL TARTRATE 50MG TABLET PO SCH ×2 (09:20→21:22)
[2020-11-30] MEDS: HEPARIN 5000 UNITS/ML VIAL SUBCUT SCH ×2 (09:21→21:23)
[2020-11-30 09:24] LABS: BASOPHILS % 0.7 % (0.0-2.0); EOSINOPHILS % 2.7 % (0.0-5.0); HEMATOCRIT. 36.1 % (36.0-48.0); HEMOGLOBIN. 11.9 g/dL (12.0-16.0); LYMPHOCYTES % 28.8 % (20.0-50.0); MEAN CORPUSCULAR HEMOGLOBIN 29.7 pg (28.0-32.0); MEAN CORPUSCULAR VOLUME 90.1 fL (81.0-99.0); MEAN PLATELET VOLUME 10.5 fl (7.4-10.4); MONOCYTES % 8.6 % (2.0-8.0); NEUTROPHILS % 59.2 % (40.0-76.0); PLATELET 172 x1000/uL (130-400); RED BLOOD CELL COUNT 4.01 mill/uL (4.2-5.4); RED CELL DISTRIBUTION WIDTH 14.7 % (11.6-14.6)
[2020-11-30 09:40] LABS: CHLORIDE 107 mEq/L (98-107)
[2020-11-30 12:11] VITALS: BP 118/60
[2020-11-30 16:36] VITALS: BP 137/81
[2020-11-30 20:42] VITALS: BP 127/57
[2020-11-30] MEDS: HYDROCODONE/ACETAMINOPHEN 5/325MG TABLET PO PRN (21:22)
[2020-12-01 00:11] VITALS: BP 119/56
[2020-12-01] MEDS: PIPERACILLIN/TAZOBACTAM 3.375 G in DEXT 5% WATER 100 ML IV SCH ×5 (01:11→23:06)
[2020-12-01] MEDS: DEXT 5%/0.45% NACL KCL 20MEQ/L 1,000 ML IV SCH ×3 (01:12→23:06)
[2020-12-01] MEDS: IPRATROPIUM/ALBUTEROL 0.5-3(2.5)MG/3ML NEB HHN SCH ×4 (02:46→20:18)
[2020-12-01 04:22] VITALS: BP 109/74
[2020-12-01 06:54] LABS: BASOPHILS % 0.9 % (0.0-2.0); EOSINOPHILS % 5.4 % (0.0-5.0); HEMATOCRIT. 34.7 % (36.0-48.0); HEMOGLOBIN. 11.6 g/dL (12.0-16.0); LYMPHOCYTES % 38.8 % (20.0-50.0); MEAN CORPUSCULAR VOLUME 90.2 fL (81.0-99.0); MEAN PLATELET VOLUME 9.6 fl (7.4-10.4); MONOCYTES % 7.7 % (2.0-8.0); NEUTROPHILS % 47.2 % (40.0-76.0); PLATELET 192 x1000/uL (130-400); RED BLOOD CELL COUNT 3.85 mill/uL (4.2-5.4); RED CELL DISTRIBUTION WIDTH 14.3 % (11.6-14.6)
[2020-12-01 07:43] LABS: CHLORIDE 108 mEq/L (98-107)
[2020-12-01 08:00] VITALS: BP 127/56
[2020-12-01] MEDS: HEPARIN 5000 UNITS/ML VIAL SUBCUT SCH ×2 (09:00→23:02)
[2020-12-01] MEDS: ASPIRIN 81MG TABLET PO SCH (10:21)
[2020-12-01] MEDS: METOPROLOL TARTRATE 50MG TABLET PO SCH ×2 (10:22→23:03)
[2020-12-01] MEDS: FAMOTIDINE 20MG/2ML VIAL IV SCH (10:23)
[2020-12-01 12:00] VITALS: BP 128/78
[2020-12-01 16:00] VITALS: BP 169/76
[2020-12-01 20:41] VITALS: BP 172/68
[2020-12-02] VITALS (7 sets, daily range): BP systolic 107–149; BP diastolic 47–121
[2020-12-02] MEDS: IPRATROPIUM/ALBUTEROL 0.5-3(2.5)MG/3ML NEB HHN SCH ×3 (01:10→13:22)
[2020-12-02] MEDS: DEXT 5%/0.45% NACL KCL 20MEQ/L 1,000 ML IV SCH ×2 (05:37→17:41)
[2020-12-02] MEDS: PIPERACILLIN/TAZOBACTAM 3.375 G in DEXT 5% WATER 100 ML IV SCH ×4 (05:37→22:09)
[2020-12-02 07:32] LABS: BASOPHILS % 0.6 % (0.0-2.0); EOSINOPHILS % 6.1 % (0.0-5.0); HEMATOCRIT. 34.4 % (36.0-48.0); HEMOGLOBIN. 11.5 g/dL (12.0-16.0); LYMPHOCYTES % 28.8 % (20.0-50.0); MEAN CORPUSCULAR HEMOGLOBIN 30.1 pg (28.0-32.0); MEAN CORPUSCULAR VOLUME 90.1 fL (81.0-99.0); MEAN PLATELET VOLUME 9.6 fl (7.4-10.4); MONOCYTES % 8.3 % (2.0-8.0); NEUTROPHILS % 56.2 % (40.0-76.0); PLATELET 172 x1000/uL (130-400); RED BLOOD CELL COUNT 3.82 mill/uL (4.2-5.4); RED CELL DISTRIBUTION WIDTH 14.6 % (11.6-14.6)
[2020-12-02 07:33] LABS: CHLORIDE 108 mEq/L (98-107)
[2020-12-02] MEDS: ASPIRIN 81MG TABLET PO SCH (08:45)
[2020-12-02] MEDS: FAMOTIDINE 20MG/2ML VIAL IV SCH (08:45)
[2020-12-02] MEDS: METOPROLOL TARTRATE 50MG TABLET PO SCH ×2 (09:01→21:57)
[2020-12-02] MEDS: HYDROCODONE/ACETAMINOPHEN 5/325MG TABLET PO PRN (09:08)
[2020-12-02] MEDS: HEPARIN 5000 UNITS/ML VIAL SUBCUT SCH ×2 (09:24→21:57)
[2020-12-03] VITALS: BP 155/77
[2020-12-03 04:00] VITALS: BP 138/72
[2020-12-03] MEDS: PIPERACILLIN/TAZOBACTAM 3.375 G in DEXT 5% WATER 100 ML IV SCH ×2 (05:26→11:27)
[2020-12-03] MEDS: DEXT 5%/0.45% NACL KCL 20MEQ/L 1,000 ML IV SCH ×2 (05:26→11:27)
[2020-12-03 06:22] LABS: BASOPHILS % 0.8 % (0.0-2.0); EOSINOPHILS % 7.1 % (0.0-5.0); HEMATOCRIT. 34.4 % (36.0-48.0); HEMOGLOBIN. 11.5 g/dL (12.0-16.0); LYMPHOCYTES % 33.7 % (20.0-50.0); MEAN PLATELET VOLUME 9.8 fl (7.4-10.4); NEUTROPHILS % 50.4 % (40.0-76.0); PLATELET 184 x1000/uL (130-400); RED BLOOD CELL COUNT 3.82 mill/uL (4.2-5.4); RED CELL DISTRIBUTION WIDTH 14.6 % (11.6-14.6)
[2020-12-03 06:23] LABS: CHLORIDE 109 mEq/L (98-107)
[2020-12-03 07:53] VITALS: BP 134/87
[2020-12-03] MEDS: IPRATROPIUM/ALBUTEROL 0.5-3(2.5)MG/3ML NEB HHN SCH (08:14)
[2020-12-03] MEDS: FAMOTIDINE 20MG/2ML VIAL IV SCH (08:50)
[2020-12-03] MEDS: METOPROLOL TARTRATE 50MG TABLET PO SCH (08:50)
[2020-12-03] MEDS: ASPIRIN 81MG TABLET PO SCH (08:50)
[2020-12-03] MEDS: HEPARIN 5000 UNITS/ML VIAL SUBCUT SCH (08:51)
[2020-12-03 11:52] VITALS: BP 127/44
== END 2020-12-03 13:06 | DRG 64 ==
LOC: ER 12:02 → 6WST 19:19 → ENRESERV 21:06
PROVIDERS: ADMIT Internal Medicine; ATTEND Internal Medicine
DX: I63.9 Cerebral infarction, unspecified (principal); J69.0 Pneumonitis due to inhalation of food and vomit; N39.0 Urinary tract infection, site not specified; R13.10 Dysphagia, unspecified; E78.5 Hyperlipidemia, unspecified; R47.02 Dysphasia; K21.9 Gastro-esophageal reflux disease without esophagitis; J42 Unspecified chronic bronchitis; K76.0 Fatty (change of) liver, not elsewhere classified; R74.01 Elevation of levels of liver transaminase levels; R06.03 Acute respiratory distress; Z20.822 Contact with and (suspected) exposure to COVID-19; Z53.20 Procedure and treatment not carried out because of patient's decision for unspecified reasons; Z86.73 Personal history of transient ischemic attack (TIA), and cerebral infarction without residual deficits; Z90.710 Acquired absence of both cervix and uterus; Z98.41 Cataract extraction status, right eye; Z99.3 Dependence on wheelchair; Z79.2 Long term (current) use of antibiotics; Z79.82 Long term (current) use of aspirin; Z79.899 Other long term (current) drug therapy; Z82.49 Family history of ischemic heart disease and other diseases of the circulatory system; Z86.011 Personal history of benign neoplasm of the brain
CPT/HCPCS: 36415; 36600; 71045; 76700; 80048; 80053; 80076; 80305; 80320; 81003; 82375; 82550; 82805; 84484; 85025; 85379; 87426; 92610; 93005; 93970; 94640; 97161; 99285; C1893; J1644; J2543; J3490; J7060; A4315; G0480